=== PATIENT | female | born 1965 | race African-American/Black ===

== ENCOUNTER 2017-11-17 07:57 | Inpatient (IN) | payer OTHER ==
[2017-11-17 08:33] VITALS: BMI 31.9
--- NOTE | 2017-11-17 09:36 | HP ---
CIWA Score - CIWA Score Nausea/Vomitin Muscle Tremors: 3 Anxiety: 4-Mod. Anxious/Guarded Agitation: 0-Normal Activity Paroxysmal Sweats: No Perspiration Orientation: 0-Oriented Tacttile Disturbances: 1-Very Mild Itch/Numbness Auditory Disturbances: 1-Very Mild Visual Disturbances: 2-Mild Sensitivity Headache: 2-Mild CIWA-Ar Total Score: 15 Admission ROS BHS - HPI Chief Complaint: I want to stop, I had 10 years clean so I know I can do it Allergies/Adverse Reactions: Allergies Allergy/AdvReac Type Severity Reaction Status Date / Time penicillin G Allergy Severe Rash Verified 11/17/17 08:46 History of Present Illness: 51 yo woman here for detox from alcohol, also using crack. Previously here in September 2017 but relapsed shortly after discharge and wants to go into rehab after detox. No seizures. Urine tox + benzo but she states she does not use it and must be mixed with crack. Exam Limitations: Clinical Condition - Ebola screening Have you traveled outside of the country in the last 21 days: No (N) Have you had contact with anyone from an Ebola affected area: No Have you been sick,other than usual withdrawal symptoms: No Do you have a fever: No - Review of Systems Constitutional: Loss of Appetite, Malaise, Changes in sleep, Weakness EENT: reports: Blurred Vision Respiratory: reports: No Symptoms reported Cardiac: reports: No Symptoms Reported GI: reports: Nausea, Indigestion, Abdominal cramping : reports: Frequency Musculoskeletal: reports: Back Pain, Joint Pain Integumentary: reports: Dryness Neuro: reports: Headache Endocrine: reports: No Symptoms Reported Hematology: reports: No Symptoms Reported Psychiatric: reports: Judgement Intact, Mood/Affect Appropiate, Orientated x3, Anxious Other Systems: Reviewed and Negative Patient History - Patient Medical History Hx Anemia: No Hx Asthma: Yes Hx Chronic Obstructive Pulmonary Disease (COPD): No Hx Cancer: No Hx Cardiac Disorders: No Hx Congestive Heart Failure: No Hx Hypertension: Yes (no meds yet) Hx Hypercholesterolemia: No Hx Pacemaker: No HX Cerebrovascular Accident: No Hx Seizures: No Hx Dementia: No Hx Diabetes: No Hx Gastrointestinal Disorders: No Hx Liver Disease: No Hx Genitourinary Disorders: No Hx Sexually Transmitted Disorders: No Hx Renal Disease (ESRD): No Hx Thyroid Disease: No Hx Human Immunodeficiency Virus (HIV): No Hx Hepatitis C: No Hx Depression: Yes (hospitalized 2017 in [place]) Hx Suicide Attempt: Yes (Pt tried to overdose in 1997.) Hx Bipolar Disorder: No Hx Schizophrenia: No Other Medical History: right knee osteoarthritis - uses cane - Patient Surgical History Past Surgical History: No Hx Neurologic Surgery: No Hx Cataract Extraction: No Hx Cardiac Surgery: No Hx Lung Surgery: No Hx Breast Surgery: No Hx Breast Biopsy: No Hx Abdominal Surgery: No Hx Appendectomy: No Hx Cholecystectomy: No Hx Genitourinary Surgery: No Hx Section: No Hx Orthopedic Surgery: No Hx Hysterectomy: No Anesthesia Reaction: No - PPD History Previous Implant?: Yes Documented Results: Negative w/proof Implanted On Prior R Admission?: Yes Date: 10/14/17 Results: 0mm PPD to be Administered?: No - Reproductive History Last Menstrual Period: 09/29/17 - Smoking Cessation Smoking history: Current every day smoker Have you smoked in the past 12 months: Yes Aproximately how many cigarettes per day: 10 Hx Chewing Tobacco Use: No Initiated information on smoking cessation: Yes 'Breaking Loose' booklet given: 11/17/17 (give on floor) - Substances Abused Alcohol Route: Oral Frequency: Daily Amount used: 3/ 6PACK BEER - 1 PINT OF VODKA Age of first use: 16 Date of Last Use: 11/16/17 Crack Route: Smoking Frequency: 3-6 times per week Amount used: $150 Age of first use: 19 Date of Last Use: 11/16/17 Family Disease History - Family Disease History Family Disease History: Heart Disease: Father (, [place], etoh), Mother ( , [place],), Brother (two living, one drug overdose), [place]: Sister ( two living, one breast cancer, drug abuse, HIV), Other: Father, Mother , Brother, Daughter (one - healthy - ) Admission Physical Exam S - Vital Signs Vital Signs: Vital Signs - 24 hr 11/17/17 08:28 Temperature 98 F Pulse Rate 98 H Respiratory 19 Rate Blood Pressure 160/96 - Physical General Appearance: Yes: Nourished, Appropriately Dressed, Moderate Distress, Tremorous, Anxious HEENTM: Yes: EOMI, Hearing grossly Normal, Normal ENT Inspection, Normocephalic , Normal Voice Respiratory: Yes: Normal Breath Sounds, No Respiratory Distress Neck: Yes: No masses,lesions,Nodules Breast: Yes: Breast Exam Deferred Cardiology: Yes: Regular Rhythm, Regular Rate Abdominal: Yes: Flat, Soft, Protuberent Genitourinary: Yes: Frequency Back: Yes: Normal Inspection Musculoskeletal: Yes: Gait Steady, Joint Stiffness, Other (right knee pain) Extremities: Yes: Normal Inspection, Pedal Edema Neurological: Yes: Fully Oriented, Alert, Normal Mood/Affect, Normal Response Integumentary: Yes: Normal Color, Warm Lymphatic: Yes: Within Normal Limits - Diagnostic (1) Alcohol dependence with uncomplicated withdrawal Current Visit: Yes Status: Acute (2) Cocaine dependence Current Visit: Yes Status: Chronic Qualifiers: Substance use status: uncomplicated Qualified Code(s): F14.20 - Cocaine dependence, uncomplicated (3) Nicotine dependence Current Visit: Yes Status: Acute Qualifiers: Nicotine product type: cigarettes Substance use status: uncomplicated Qualified Code(s): F17.210 - Nicotine dependence, cigarettes, uncomplicated (4) Osteoarthritis of right knee Current Visit: Yes Status: Chronic Qualifiers: Osteoarthritis type: primary Qualified Code(s): M17.11 - Unilateral primary osteoarthritis, right knee (5) Asthma Current Visit: Yes Status: Chronic Qualifiers: Asthma severity: moderate Asthma complication type: uncomplicated Cleared for Admission S - Detox or Rehab [facility] Level of Care: Medically Managed Detox Regimen/Protocol: Librium [facility] Breath Alcohol Content Breath Alcohol Content: 0 Urine Pregancy Test - Result Urine Test Results: Negative- NO Line Present Urine Drug Screen - Results Drug Screen Negative: No Urine Drug Screen Results: JULIO-Cocaine, BZO-Benzodiazepines, TCA-Tricyclic Antidepress
[2017-11-17] MEDS ORDERED: IBUPROFEN 400 MG TABLET (FP) PO PRN (09:42)
[2017-11-17] MEDS ORDERED: guaiFENesin/D-METHORPHAN HB 10 ML UNIT-DOSE CUPS PO PRN (09:42)
[2017-11-17] MEDS ORDERED: LOPERAMIDE HCL 2 MG CAPSULE PO PRN (09:42)
[2017-11-17] MEDS ORDERED: chlordiazePOXIDE HCL 25 MG CAPSULE PO ONE (09:42)
[2017-11-17] MEDS ORDERED: chlordiazePOXIDE HCL 25 MG CAPSULE PO PRN (09:42)
[2017-11-17] MEDS ORDERED: MAG HYDROX/AL HYDROX/SIMETH 30 ML UNIT-DOSE CUP PO PRN (09:42)
[2017-11-17] MEDS ORDERED: MAGNESIUM HYDROX 2400MG/30ML ORAL SUSPENSION 30 ML CUP PO PRN (09:42)
[2017-11-17] MEDS ORDERED: ACETAMINOPHEN 325 MG TABLET (FP) PO PRN (09:42)
[2017-11-17] MEDS ORDERED: P-EPHED 60MG/TRIPROLIDI 2.5MG TABLET PO PRN (09:42)
[2017-11-17] MEDS ORDERED: NICOTINE POLACRILEX 4 MG GUM BUC PRN (09:42)
[2017-11-17] MEDS ORDERED: MAGNESIUM CITRATE 300 ML BOTTLE PO PRN (09:42)
[2017-11-17] MEDS ORDERED: hydrOXYzine PAMOATE 25 MG CAPSULE (FP) PO PRN (09:42)
[2017-11-17] MEDS ORDERED: MENTHOL/PHENOL 1 EACH UD MM PRN (09:42)
[2017-11-17] MEDS ORDERED: ALBUTEROL SO4 8 GM HFA INHALER IH PRN (09:44)
[2017-11-17] MEDS: chlordiazePOXIDE HCL 25 MG CAPSULE PO SCH ×3 (11:41→22:38)
[2017-11-17] MEDS: PRENATAL VITAMINS W/ FOLIC ACID TABLET (FP) PO SCH (11:41)
[2017-11-17 15:03] LABS: URINE APPEARANCE CLOUDY; URINE BILIRUBIN NEGATIVE (<2.0 mg/dL); URINE COLOR LTYELLOW; URINE GLUCOSE (UA) NEGATIVE (NEGATIVE); URINE KETONE NEGATIVE (NEGATIVE); URINE NITRITE NEGATIVE (NEGATIVE); URINE PROTEIN NEGATIVE (NEGATIVE); URINE UROBILINOGEN NEGATIVE mg/dL (0.2-1.0)
[2017-11-17 15:16] LABS: URINE LEUK ESTERASE 1+ (NEGATIVE)
[2017-11-17 15:19] LABS: EPI CELLS MANY /HPF (FEW)
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
--- NOTE | 2017-11-17 19:46 | EKG ---
Test Reason : Blood Pressure : / mmHG Vent. Rate : 081 BPM Atrial Rate : 081 BPM P-R Int : 172 ms QRS Dur : 076 ms QT Int : 384 ms P-R-T Axes : 078 070 063 degrees QTc Int : 446 ms NORMAL SINUS RHYTHM POSSIBLE LEFT ATRIAL ENLARGEMENT BORDERLINE ECG WHEN COMPARED WITH ECG OF 12-OCT-2017 12:56, NO SIGNIFICANT CHANGE WAS FOUND Confirmed by FIFI GUY, GILSON ([id number]) on 11/17/2017 7:45:55 PM Referred By: Confirmed By:GILSON CALIX MD
[2017-11-17] MEDS ORDERED: THIAMINE HCL 100 MG TABLET (FP) PO SCH (22:00)
[2017-11-17] MEDS ORDERED: MELATONIN 5 MG TABLETS PO PRN (22:00)
[2017-11-17] MEDS: CYCLOBENZAPRINE HCL 10 MG TABLET (FP) PO PRN (22:38)
[2017-11-18] MEDS: chlordiazePOXIDE HCL 25 MG CAPSULE PO SCH (05:47)
[2017-11-18] MEDS ORDERED: SERTRALINE HCL 50 MG TABLET (FP) PO SCH (10:00)
[2017-11-18 10:19] LABS: HEMOGLOBIN 13.1 GM/dL (10.7-15.3); MCH 28.3 pg (25.7-33.7); MCHC 32.8 g/dl (32.0-36.0); MEAN CELL VOLUME 86.1 fl (80-96); PLATELET COUNT 182 K/MM3 (134-434); RBC 4.65 M/mm3 (3.60-5.2); RDW 15.1 % (11.6-15.6); WHITE BLOOD COUNT 4.9 K/mm3 (4.0-10.0)
[2017-11-18 10:30] VITALS: BP 139/90; PULSE 90; TEMP 97.3
[2017-11-18] MEDS: CYCLOBENZAPRINE HCL 10 MG TABLET (FP) PO PRN (10:30)
[2017-11-18] MEDS: PRENATAL VITAMINS W/ FOLIC ACID TABLET (FP) PO SCH (10:30)
[2017-11-18 10:52] LABS: ALBUMIN 3.1 g/dl (3.4-5.0); ANION GAP 3 (8-16); BLOOD UREA NITROGEN 10 mg/dL (7-18); CALCIUM 8.9 mg/dL (8.5-10.1); CHLORIDE 108 mmol/L (98-107); CO2 30 mmol/L (21-32); GLUCOSE,RANDOM 88 mg/dL (74-106); POTASSIUM 3.9 mmol/L (3.5-5.1); SODIUM 141 mmol/L (136-145)
[2017-11-18 10:54] LABS: ALK PHOS 106 U/L (45-117); BILIRUBIN,TOTAL 0.3 mg/dL (0.2-1.0); CREATININE 0.6 mg/dL (0.55-1.02); SGOT/AST 16 U/L (15-37); SGPT/ALT 19 U/L (12-78); TOT PROT 6.2 g/dl (6.4-8.2)
[2017-11-18] MEDS ORDERED: chlordiazePOXIDE HCL 25 MG CAPSULE PO SCH (11:00)
--- NOTE | 2017-11-18 14:29 | DS ---
[facility] Detox Discharge Summary Admission Date: 11/17/17 Discharge Date: 11/18/17 - History Present History: Alcohol Dependence Additional Comments: 51 years old female admitted on 11/17/17 for alcohol withdrawal sx stated well rested feeling better today no shaking no sweating patient preferred aftercare recovery process at [facility] and an appointment had been set up few days ago alert oriented x 3 no acute distress - Physical Exam Results Vital Signs: Vital Signs Temperature 97.3 F L 11/18/17 10:30 Pulse Rate 90 11/18/17 10:30 Respiratory Rate 16 11/18/17 10:30 Blood Pressure 139/90 11/18/17 10:30 O2 Sat by Pulse Oximetry (%) Laboratory Last Values WBC 4.9 K/mm3 (4.0-10.0) 11/18/17 07:50 RBC 4.65 M/mm3 (3.60-5.2) 11/18/17 07:50 Hgb 13.1 GM/dL (10.7-15.3) 11/18/17 07:50 Hct 40.0 % (32.4-45.2) 11/18/17 07:50 MCV 86.1 fl (80-96) 11/18/17 07:50 MCH 28.3 pg (25.7-33.7) 11/18/17 07:50 MCHC 32.8 g/dl (32.0-36.0) 11/18/17 07:50 RDW 15.1 % (11.6-15.6) 11/18/17 07:50 Plt Count 182 K/MM3 (134-434) 11/18/17 07:50 MPV 8.0 fl (7.5-11.1) 11/18/17 07:50 Sodium 141 mmol/L (136-145) 11/18/17 07:50 Potassium 3.9 mmol/L (3.5-5.1) 11/18/17 07:50 Chloride 108 mmol/L (98-107) H 11/18/17 07:50 Carbon Dioxide 30 mmol/L (21-32) 11/18/17 07:50 Anion Gap 3 (8-16) L 11/18/17 07:50 BUN 10 mg/dL (7-18) 11/18/17 07:50 Creatinine 0.6 mg/dL (0.55-1.02) 11/18/17 07:50 Creat Clearance w eGFR > 60 (>60) 11/18/17 07:50 Random Glucose 88 mg/dL (74-106) 11/18/17 07:50 Calcium 8.9 mg/dL (8.5-10.1) 11/18/17 07:50 Total Bilirubin 0.3 mg/dL (0.2-1.0) 11/18/17 07:50 AST 16 U/L (15-37) 11/18/17 07:50 ALT 19 U/L (12-78) 11/18/17 07:50 Alkaline Phosphatase 106 U/L (45-117) 11/18/17 07:50 Total Protein 6.2 g/dl (6.4-8.2) L 11/18/17 07:50 Albumin 3.1 g/dl (3.4-5.0) L 11/18/17 07:50 Urine Color Ltyellow 11/17/17 11:10 Urine Appearance Cloudy 11/17/17 11:10 Urine pH 6.0 (5.0-8.0) 11/17/17 11:10 Ur Specific [place] 1.018 (1.001-1.035) 11/17/17 11:10 Urine Protein Negative (NEGATIVE) 11/17/17 11:10 Urine Glucose (UA) Negative (NEGATIVE) 11/17/17 11:10 Urine Ketones Negative (NEGATIVE) 11/17/17 11:10 Urine Blood Negative (NEGATIVE) 11/17/17 11:10 Urine Nitrite Negative (NEGATIVE) 11/17/17 11:10 Urine Bilirubin Negative (<2.0 mg/dL) 11/17/17 11:10 Urine Urobilinogen Negative mg/dL (0.2-1.0) 11/17/17 11:10 Ur Leukocyte Esterase 1+ (NEGATIVE) H 11/17/17 11:10 Urine WBC (Auto) 2 /hpf (3-5) 11/17/17 11:10 Urine RBC (Auto) None /hpf (0-3) 11/17/17 11:10 Ur Epithelial Cells Many /HPF (FEW) 11/17/17 11:10 RPR Titer Nonreactive (NONREACTIVE) 11/18/17 07:50 lab noted Pertinent Admission Physical Exam Findings: alcohol withdrawal sx Vital Signs Temperature 97.3 F L 11/18/17 10:30 Pulse Rate 90 11/18/17 10:30 Respiratory Rate 16 11/18/17 10:30 Blood Pressure 139/90 11/18/17 10:30 O2 Sat by Pulse Oximetry (%) Laboratory Last Values WBC 4.9 K/mm3 (4.0-10.0) 11/18/17 07:50 RBC 4.65 M/mm3 (3.60-5.2) 11/18/17 07:50 Hgb 13.1 GM/dL (10.7-15.3) 11/18/17 07:50 Hct 40.0 % (32.4-45.2) 11/18/17 07:50 MCV 86.1 fl (80-96) 11/18/17 07:50 MCH 28.3 pg (25.7-33.7) 11/18/17 07:50 MCHC 32.8 g/dl (32.0-36.0) 11/18/17 07:50 RDW 15.1 % (11.6-15.6) 11/18/17 07:50 Plt Count 182 K/MM3 (134-434) 11/18/17 07:50 MPV 8.0 fl (7.5-11.1) 11/18/17 07:50 Sodium 141 mmol/L (136-145) 11/18/17 07:50 Potassium 3.9 mmol/L (3.5-5.1) 11/18/17 07:50 Chloride 108 mmol/L (98-107) H 11/18/17 07:50 Carbon Dioxide 30 mmol/L (21-32) 11/18/17 07:50 Anion Gap 3 (8-16) L 11/18/17 07:50 BUN 10 mg/dL (7-18) 11/18/17 07:50 Creatinine 0.6 mg/dL (0.55-1.02) 11/18/17 07:50 Creat Clearance w eGFR > 60 (>60) 11/18/17 07:50 Random Glucose 88 mg/dL (74-106) 11/18/17 07:50 Calcium 8.9 mg/dL (8.5-10.1) 11/18/17 07:50 Total Bilirubin 0.3 mg/dL (0.2-1.0) 11/18/17 07:50 AST 16 U/L (15-37) 11/18/17 07:50 ALT 19 U/L (12-78) 11/18/17 07:50 Alkaline Phosphatase 106 U/L (45-117) 11/18/17 07:50 Total Protein 6.2 g/dl (6.4-8.2) L 11/18/17 07:50 Albumin 3.1 g/dl (3.4-5.0) L 11/18/17 07:50 Urine Color Ltyellow 11/17/17 11:10 Urine Appearance Cloudy 11/17/17 11:10 Urine pH 6.0 (5.0-8.0) 11/17/17 11:10 Ur Specific [place] 1.018 (1.001-1.035) 11/17/17 11:10 Urine Protein Negative (NEGATIVE) 11/17/17 11:10 Urine Glucose (UA) Negative (NEGATIVE) 11/17/17 11:10 Urine Ketones Negative (NEGATIVE) 11/17/17 11:10 Urine Blood Negative (NEGATIVE) 11/17/17 11:10 Urine Nitrite Negative (NEGATIVE) 11/17/17 11:10 Urine Bilirubin Negative (<2.0 mg/dL) 11/17/17 11:10 Urine Urobilinogen Negative mg/dL (0.2-1.0) 11/17/17 11:10 Ur Leukocyte Esterase 1+ (NEGATIVE) H 11/17/17 11:10 Urine WBC (Auto) 2 /hpf (3-5) 11/17/17 11:10 Urine RBC (Auto) None /hpf (0-3) 11/17/17 11:10 Ur Epithelial Cells Many /HPF (FEW) 11/17/17 11:10 RPR Titer Nonreactive (NONREACTIVE) 11/18/17 07:50 lab noted - Treatment Hospital Course: Detox Protocol Followed, Detoxed Safely, Responded well, Discharged Condition Good, Rehab Referral Accepted Patient has Accepted a Rehab Referral to: [facility] - Medication Discharge Medications: Ambulatory Orders Sertraline HCl [Zoloft -] 150 mg PO HS 09/06/15 Terbinafine HCl 250 mg PO DAILY 10/12/17 Albuterol Sulfate Inhaler - [Ventolin HFA Inhaler -] 2 inh PO Q4H PRN #1 inhaler 10/15/17 Cyclobenzaprine HCl [Flexeril 10 mg] 10 mg PO BID PRN 11/17/17 - Diagnosis (1) Alcohol dependence with uncomplicated withdrawal Status: Acute (2) Nicotine dependence Status: Acute Qualifiers: Nicotine product type: cigarettes Substance use status: in withdrawal Qualified Code(s): F17.213 - Nicotine dependence, cigarettes, with withdrawal (3) Asthma Status: Chronic Qualifiers: Asthma severity: mild Asthma persistence: intermittent Asthma complication type: uncomplicated Qualified Code(s): J45.20 - Mild intermittent asthma, uncomplicated (4) Schizoaffective disorder Status: Suspected Qualifiers: Schizoaffective disorder type: unspecified - AMA Did Patient Leave Against Medical Advice: No
[2017-11-19] MEDS ORDERED: chlordiazePOXIDE 5 MG CAPSULE PO SCH (11:00)
[2017-11-20] MEDS ORDERED: chlordiazePOXIDE HCL 10 MG CAPSULE PO SCH (11:00)
== END 2017-11-18 13:37 | disposition left against medical advice (07) | DRG 770 ==
LOC: YASAS 07:57 → Y6N 09:52
PROVIDERS: ADMIT Surgery; ATTEND Surgery
PROC: HZ2ZZZZ Detoxification Services for Substance Abuse Treatment (ICD-10-PCS; principal; 2017-11-17)
DX: F10.230 Alcohol dependence with withdrawal, uncomplicated (principal); F14.20 Cocaine dependence, uncomplicated; F17.213 Nicotine dependence, cigarettes, with withdrawal; F19.24 Other psychoactive substance dependence with psychoactive substance-induced mood disorder; F25.9 Schizoaffective disorder, unspecified; J45.20 Mild intermittent asthma, uncomplicated; G47.00 Insomnia, unspecified; M17.11 Unilateral primary osteoarthritis, right knee; R26.89 Other abnormalities of gait and mobility; Z99.89 Dependence on other enabling machines and devices; Z91.14 Patient's other noncompliance with medication regimen; Z91.5 Personal history of self-harm; Z88.0 Allergy status to penicillin
CPT/HCPCS: 36415; 80053; 81003; 81015; 85027; 86593; 93005; 93010

== ENCOUNTER 2018-09-05 13:12 | Inpatient (IN) | payer OTHER ==
--- NOTE | 2018-09-05 18:58 | HP ---
CIWA Score Nausea/Vomitin-No Nausea/No Vomiting Muscle Tremors: 2 Anxiety: 3 Agitation: 0-Normal Activity Paroxysmal Sweats: 2 Orientation: 0-Oriented Tacttile Disturbances: 2-Mild Itch/Numbness/Burn Auditory Disturbances: 2-Mild Harshness/Frighten Visual Disturbances: 0-None Headache: 0-None Present CIWA-Ar Total Score: 11 - Admission Criteria [facility] Guidelines: Admission for Medically Managed Detox: Requires at least one of the followin. CIWA greater than 12 2. Seizures within the past 24 hours 3. Delirium tremens within the past 24 hours 4. Hallucinations within the past 24 hours 5. Acute intervention needed for co occurring medical disorder 6. Acute intervention needed for co occurring psychiatric disorder 7. Severe withdrawal that cannot be handled at a lower level of care (continued vomiting, continued diarrhea, abnormal vital signs) requiring intravenous medication and/or fluids 8. Patient presents the following: Acute intervention needed for co-occurring med or psych disorder Admission Criteria Met: Admission criteria met Admission ROS S - [facility] Chief Complaint: alcohol withdrawal symptoms Allergies/Adverse Reactions: Allergies Allergy/AdvReac Type Severity Reaction Status Date / Time penicillin G Allergy Severe Rash Verified 11/17/17 08:46 History of Present Illness: 52 yo female with hx of alcohol and crack cocaine is here for detox. Previously here in October 2017, left AMA but relapsed shortly after discharge and wants to go into rehab after detox. Longest period of sobriety 10 years, relapse three years ago. No seizures. Urine tox + benzo, dirk but she states she does not use it and must be mixed with crack. PMHX: HTN (no meds), OA(b/l knees), Chronic back pain, asthma. Psych: PTSD, schizoaffective, depression, on meds. Suicide attempt x3 with last episode 1998. Exam Limitations: No Limitations - Ebola screening Have you traveled outside of the country in the last 21 days: No Have you had contact with anyone from an Ebola affected area: No Do you have a fever: No - Review of Systems Constitutional: Chills, Changes in sleep, Other (weight gain) EENT: reports: No Symptoms Reported Respiratory: reports: Cough (x 2 weeks), SOB with Exertion (upon awakening) Cardiac: reports: No Symptoms Reported GI: reports: Poor Fluid Intake, Indigestion : reports: No Symptoms Reported, Lesions Musculoskeletal: reports: Joint Pain Integumentary: reports: Pruritus, Other (pruritic rash both arms, seen by PCP) Neuro: reports: No Symptoms reported Endocrine: reports: Intolerance to Cold Hematology: reports: No Symptoms Reported Psychiatric: reports: Orientated x3, Anxious Other Systems: Reviewed and Negative Patient History - Patient Medical History Hx Anemia: No Hx Asthma: Yes Hx Chronic Obstructive Pulmonary Disease (COPD): No Hx Cancer: No Hx Cardiac Disorders: No Hx Congestive Heart Failure: No Hx Hypertension: Yes (no meds yet) Hx Hypercholesterolemia: No Hx Pacemaker: No HX Cerebrovascular Accident: No Hx Seizures: No Hx Dementia: No Hx Diabetes: No Hx Gastrointestinal Disorders: No Hx Liver Disease: No Hx Genitourinary Disorders: No Hx Sexually Transmitted Disorders: No Hx Renal Disease (ESRD): No Hx Thyroid Disease: No Hx Human Immunodeficiency Virus (HIV): No Hx Hepatitis C: No Hx Depression: Yes (hospitalized 2016 in [place]) Hx Suicide Attempt: Yes (Pt tried to overdose in 1997.) Hx Bipolar Disorder: No Hx Schizophrenia: No - Patient Surgical History Past Surgical History: No Hx Neurologic Surgery: No Hx Cataract Extraction: No Hx Cardiac Surgery: No Hx Lung Surgery: No Hx Breast Surgery: No Hx Breast Biopsy: No Hx Abdominal Surgery: No Hx Appendectomy: No Hx Cholecystectomy: No Hx Genitourinary Surgery: No Hx Section: No Hx Orthopedic Surgery: No Hx Hysterectomy: No Anesthesia Reaction: No - PPD History Previous Implant?: No Documented Results: Negative w/proof Date: 10/14/17 Results: 0mm PPD to be Administered?: No - Reproductive History Last Menstrual Period: 09/29/17 - Smoking Cessation Smoking history: Current every day smoker Have you smoked in the past 12 months: Yes Aproximately how many cigarettes per day: 10 Hx Chewing Tobacco Use: No Initiated information on smoking cessation: Yes 'Breaking Loose' booklet given: 09/05/18 - Substance & Tx. History Hx Alcohol Use: Yes Hx Substance Use: Yes Substance Use Type: Alcohol, Cocaine Hx Substance Use Treatment: Yes ([facility] detox October 2017 AMA ) - Substances abused Alcohol Substance route: Oral Frequency: Daily Amount used: 2 160Z 6PACKS BEER/DAILY Age of first use: 16 Date of last use: 09/05/18 Crack Substance route: Smoking Frequency: 3-6 times per week Amount used: $100 Age of first use: 19 Date of last use: 09/04/18 Family Disease History - Family Disease History Family Disease History: Heart Disease: Father (, [place], etoh), Mother ( , [place],), Brother (two living, one drug overdose), [place]: Sister ( two living, one breast cancer, drug abuse, HIV), Other: Father, Mother , Brother, Daughter (one - healthy - ) Admission Physical Exam [facility] - Vital Signs Vital Signs: Vital Signs - 24 hr 09/05/18 17:33 Temperature 98.3 F Pulse Rate 85 Respiratory 18 Rate Blood Pressure 150/90 - Physical General Appearance: Yes: Appropriately Dressed, Anxious HEENTM: Yes: EOMI, Hearing grossly Normal, Normal ENT Inspection, Normocephalic , Normal Voice, CAROLYNN, Pharynx Normal, Tm's normal Respiratory: Yes: Chest Non-Tender, Lungs Clear, Normal Breath Sounds, No Respiratory Distress, No Accessory Muscle Use Neck: Yes: Within Normal Limits Breast: Yes: Breast Exam Deferred Cardiology: Yes: Regular Rhythm, Regular Rate Abdominal: Yes: Normal Bowel Sounds, Non Tender, Flat, Soft Genitourinary: Yes: Within Normal Limits Back: Yes: Normal Inspection Musculoskeletal: Yes: full range of Motion, Gait Steady, Pelvis Stable, Back pain, Other (+ bilateral knee pain, full ROM, + crepitus, erythema or edema) Extremities: Yes: Normal Capillary Refill, Normal Inspection, Normal Range of Motion, Non-Tender Neurological: Yes: 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 II-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 NML intact, Fully Oriented, Alert, Motor Strength 5/5, Normal Mood/Affect Integumentary: Yes: Normal Color, Warm, Clammy, Other (+ rash right upper arm) Lymphatic: Yes: Within Normal Limits - Diagnostic (1) Osteoarthritis Current Visit: Yes Status: Chronic Qualifiers: Osteoarthritis location: knee Laterality: bilateral (2) Alcohol dependence with uncomplicated withdrawal Current Visit: Yes Status: Acute (3) Cocaine dependence Current Visit: Yes Status: Acute Qualifiers: Substance use status: uncomplicated Qualified Code(s): F14.20 - Cocaine dependence, uncomplicated (4) Insomnia Current Visit: Yes Status: Acute (5) Nicotine dependence Current Visit: Yes Status: Acute Qualifiers: Nicotine product type: cigarettes Substance use status: in withdrawal Qualified Code(s): F17.213 - Nicotine dependence, cigarettes, with withdrawal (6) Asthma Current Visit: Yes Status: Chronic Qualifiers: Asthma severity: moderate Asthma persistence: persistent Asthma complication type: uncomplicated Qualified Code(s): J45.40 - Moderate persistent asthma, uncomplicated Cleared for Admission [facility] - Detox or Rehab [facility] Level of Care: Medically Managed Detox Regimen/Protocol: Librium Screened but not Admitted - Documentation of Visit Screened but not Admitted: No Breathalyzer - Breathalyzer Breathalyzer: 0 Urine Drug Screen - Test Device Lot number: [id number] Expiration date: 05/30/20 - Control Is test valid?: Yes - Results Drug screen NEGATIVE: No Urine drug screen results: DIRK-Cocaine, BZO-Benzodiazepines Inpatient Rehab Admission - Rehab Decision to Admit Inpatient rehab admission?: No
[2018-09-05] MEDS ORDERED: ALBUTEROL SO4 8 GM HFA INHALER IH PRN (19:01)
[2018-09-05] MEDS ORDERED: MENTHOL/PHENOL 1 EACH UD MM PRN (19:02)
[2018-09-05] MEDS ORDERED: ACETAMINOPHEN 325 MG TABLET (FP) PO PRN ×2 (19:02)
[2018-09-05] MEDS ORDERED: MAGNESIUM CITRATE 300 ML BOTTLE PO PRN (19:02)
[2018-09-05] MEDS ORDERED: BISMUTH SUBSALICYLATE 524 MG/30 ML UD PO PRN (19:02)
[2018-09-05] MEDS ORDERED: hydrOXYzine PAMOATE 25 MG CAPSULE (FP) PO PRN (19:02)
[2018-09-05] MEDS ORDERED: IBUPROFEN 400 MG TABLET (FP) PO PRN (19:02)
[2018-09-05] MEDS ORDERED: chlordiazePOXIDE HCL 25 MG CAPSULE PO PRN (19:02)
[2018-09-05] MEDS ORDERED: METHOCARBAMOL 500 MG TABLET PO PRN (19:02)
[2018-09-05] MEDS ORDERED: MAGNESIUM HYDROX 2400MG/30ML ORAL SUSPENSION 30 ML CUP PO PRN (19:02)
[2018-09-05] MEDS ORDERED: MAG HYDROX/AL HYDROX/SIMETH 30 ML UNIT-DOSE CUP PO PRN (19:02)
[2018-09-05] MEDS ORDERED: MELATONIN 5 MG TABLETS PO PRN (19:02)
[2018-09-05] MEDS ORDERED: ALBUTEROL SO4 2.5/IPRATROPIUM 0.5 INH SOL 3 ML VIAL.NEB. NEB PRN (19:05)
[2018-09-05] MEDS: MONTELUKAST NA 10 MG TABLET PO SCH (21:53)
[2018-09-05] MEDS: THIAMINE HCL 100 MG TABLET (FP) PO SCH (21:53)
[2018-09-05] MEDS: chlordiazePOXIDE HCL 25 MG CAPSULE PO SCH (22:06)
[2018-09-06] MEDS: chlordiazePOXIDE HCL 25 MG CAPSULE PO SCH ×4 (06:10→22:29)
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
--- NOTE | 2018-09-06 09:40 | PN ---
[facility] CIWA - CIWA Score Nausea/Vomitin Muscle Tremors: 2 Anxiety: 3 Agitation: 2 Paroxysmal Sweats: 1-Minimal Palms Moist Orientation: 0-Oriented Tacttile Disturbances: 1-Very Mild Itch/Numbness Auditory Disturbances: 1-Very Mild Visual Disturbances: 0-None Headache: 2-Mild CIWA-Ar Total Score: 14 [facility] Progress Note (SOAP) Subjective: alert,irritable,anxious,interrupted sleep,tremor Objective: 09/06/18 09:39 Vital Signs Temperature 97.7 F 09/06/18 06:06 Pulse Rate 83 09/06/18 06:06 Respiratory Rate 20 09/06/18 06:06 Blood Pressure 146/93 09/06/18 06:06 O2 Sat by Pulse Oximetry (%) 09/06/18 09:39 labs pending Assessment: 09/06/18 09:39 withdrawal symptom Plan: continue detox
[2018-09-06] MEDS: PRENATAL VITAMINS W/ FOLIC ACID TABLET (FP) PO SCH (10:09)
[2018-09-06 10:10] LABS: HEMATOCRIT 43.2 % (32.4-45.2); HEMOGLOBIN 13.7 GM/dL (10.7-15.3); MCH 28.2 pg (25.7-33.7); MCHC 31.7 g/dl (32.0-36.0); PLATELET COUNT 189 K/MM3 (134-434); RBC 4.86 M/mm3 (3.60-5.2); RDW 14.9 % (11.6-15.6); WHITE BLOOD COUNT 5.6 K/mm3 (4.0-10.0)
[2018-09-06 10:18] LABS: ALBUMIN 3.3 g/dl (3.4-5.0); BILIRUBIN,TOTAL 1.5 mg/dL (0.2-1); CREATININE 0.6 mg/dL (0.55-1.3); POTASSIUM 3.8 mmol/L (3.5-5.1); TOT PROT 6.3 g/dl (6.4-8.2)
[2018-09-06] MEDS ORDERED: PATIENT'S OWN MEDICATION (NON-FORMULARY) (Bupropion Hcl [Bupropion Hcl Sr] 150 MG) PO SCH (22:00)
[2018-09-06] MEDS: BENZTROPINE MESYLATE 1 MG TABLET (FP) PO SCH (22:23)
[2018-09-06] MEDS: MONTELUKAST NA 10 MG TABLET PO SCH (22:23)
[2018-09-06] MEDS: risperiDONE 1 MG TABLET (FP) PO SCH (22:27)
[2018-09-06] MEDS: THIAMINE HCL 100 MG TABLET (FP) PO SCH (23:17)
[2018-09-07] MEDS: chlordiazePOXIDE HCL 25 MG CAPSULE PO SCH ×3 (06:02→17:55)
[2018-09-07] MEDS: PRENATAL VITAMINS W/ FOLIC ACID TABLET (FP) PO SCH (10:04)
[2018-09-07] MEDS: PATIENT'S OWN MEDICATION (NON-FORMULARY) (Bupropion Hcl [Bupropion Hcl Sr] 150 MG) PO SCH (10:05)
--- NOTE | 2018-09-07 10:24 | PN ---
S CIWA - CIWA Score Nausea/Vomitin-No Nausea/No Vomiting Muscle Tremors: 3 Anxiety: 2 Agitation: 0-Normal Activity Paroxysmal Sweats: 4-Forehead w/Sweat Beads Orientation: 0-Oriented Tacttile Disturbances: 0-None Auditory Disturbances: 0-None Visual Disturbances: 0-None Headache: 1-Very Mild CIWA-Ar Total Score: 10 [facility] Progress Note (SOAP) Subjective: c/o sweats, anxiety, interrupted sleep, and mild headache. Objective: 09/07/18 10:23 Vital Signs 09/07/18 09/07/18 07:54 09:49 Temperature 98.4 F 96.1 F L Pulse Rate 76 83 Respiratory 18 18 Rate Blood Pressure 124/72 138/83 Assessment: 09/07/18 10:23 AOX3, no distress withdrawal symptoms Plan: continue detox increase fluids
[2018-09-07] MEDS: BENZTROPINE MESYLATE 1 MG TABLET (FP) PO SCH (22:27)
[2018-09-07] MEDS: risperiDONE 1 MG TABLET (FP) PO SCH (22:27)
[2018-09-07] MEDS: MONTELUKAST NA 10 MG TABLET PO SCH (22:27)
[2018-09-07] MEDS: THIAMINE HCL 100 MG TABLET (FP) PO SCH (22:27)
[2018-09-07] MEDS: chlordiazePOXIDE HCL 10 MG CAPSULE PO SCH (22:28)
[2018-09-07] MEDS ORDERED: chlordiazePOXIDE HCL 10 MG CAPSULE PO PRN (23:00)
[2018-09-08] MEDS: chlordiazePOXIDE HCL 10 MG CAPSULE PO SCH ×3 (05:47→17:53)
[2018-09-08] MEDS: PRENATAL VITAMINS W/ FOLIC ACID TABLET (FP) PO SCH (10:15)
[2018-09-08] MEDS: PATIENT'S OWN MEDICATION (NON-FORMULARY) (Bupropion Hcl [Bupropion Hcl Sr] 150 MG) PO SCH (10:15)
[2018-09-08] MEDS ORDERED: NICOTINE POLACRILEX 2 MG GUM BUC PRN (11:01)
--- NOTE | 2018-09-08 14:59 | PN ---
S CIWA - CIWA Score Nausea/Vomitin-No Nausea/No Vomiting Muscle Tremors: 2 Anxiety: 2 Agitation: 2 Paroxysmal Sweats: 2 Orientation: 0-Oriented Tacttile Disturbances: 0-None Auditory Disturbances: 0-None Visual Disturbances: 0-None Headache: 0-None Present CIWA-Ar Total Score: 8 [facility] Progress Note (SOAP) Subjective: Patient denies any complaints at this time Objective: 09/08/18 14:58 Last Vital Signs Temp Pulse Resp BP Pulse Ox 96.1 F L 86 18 145/86 09/08/18 14:09 09/08/18 14:09 09/08/18 14:09 09/08/18 14:09 Elevated b/p noted 145/86 (has htn, not on med) Laboratory Tests 09/05/18 09/06/18 09/06/18 18:17 07:00 07:00 WBC 5.6 RBC 4.86 Hgb 13.7 Hct 43.2 MCV 89.0 MCH 28.2 MCHC 31.7 L RDW 14.9 Plt Count 189 MPV 8.0 Sodium 141 Potassium 3.8 Chloride 108 H Carbon Dioxide 27 Anion Gap 6 L BUN 14 Creatinine 0.6 Est GFR (CKD-EPI)AfAm 121.46 Est GFR (CKD-EPI)NonAf 104.80 Random Glucose 92 Calcium 9.0 Total Bilirubin 1.5 H AST 15 ALT 24 Alkaline Phosphatase 91 Total Protein 6.3 L Albumin 3.3 L POC Urine HCG, Qual Negative RPR Titer 09/06/18 07:00 WBC RBC Hgb Hct MCV MCH MCHC RDW Plt Count MPV Sodium Potassium Chloride Carbon Dioxide Anion Gap BUN Creatinine Est GFR (CKD-EPI)AfAm Est GFR (CKD-EPI)NonAf Random Glucose Calcium Total Bilirubin AST ALT Alkaline Phosphatase Total Protein Albumin POC Urine HCG, Qual RPR Titer Nonreactive Labs reviewed: total bilirubin 1.5 Assessment: 09/08/18 15:01 Withdrawal symptoms Noted with htn and elevated total bilirubin Plan: Continue detox Encouraged PO water hydration HTN: not on medication, start clonidine 0.1mg PO q8hr prn if b/p > 140/90 Follow up with PCP for management Elevated total bilirubin: most likely due to alcoholism, repeat total bilirubin
[2018-09-08] MEDS ORDERED: cloNIDine HCL 0.1 MG TABLET PO PRN (15:00)
[2018-09-08] MEDS: risperiDONE 1 MG TABLET (FP) PO SCH (22:12)
[2018-09-08] MEDS: MONTELUKAST NA 10 MG TABLET PO SCH (22:12)
[2018-09-08] MEDS: THIAMINE HCL 100 MG TABLET (FP) PO SCH (22:12)
[2018-09-08] MEDS: BENZTROPINE MESYLATE 1 MG TABLET (FP) PO SCH (22:14)
[2018-09-08] MEDS ORDERED: chlordiazePOXIDE HCL 10 MG CAPSULE PO SCH (23:00)
[2018-09-09 09:02] VITALS: BP 131/91; PULSE 88; TEMP 98.1
[2018-09-09] MEDS: PATIENT'S OWN MEDICATION (NON-FORMULARY) (Bupropion Hcl [Bupropion Hcl Sr] 150 MG) PO SCH (09:14)
[2018-09-09] MEDS: PRENATAL VITAMINS W/ FOLIC ACID TABLET (FP) PO SCH (09:14)
--- NOTE | 2018-09-09 16:36 | DS ---
[facility] Detox Discharge Summary Admission Date: 09/05/18 Discharge Date: 09/09/18 - History Present History: Alcohol Dependence, Cocaine Dependence Additional Comments: PATIENT GOING TO [facility] ([place], [place]) FOR AFTERCARE. PATIENT WAS DISCHARGED FROM DETOX UNIT IN STABLE MEDICAL CONDITION. Pertinent Past History: Osteoarthritis, Insomnia, Nicotine Dependence, Asthma, HTN, Chronic Back Pain, Schizoaffective Disorder, P.T.S.D., Depression. - Physical Exam Results Vital Signs: Vital Signs Temperature 98.1 F 09/09/18 09:01 Pulse Rate 88 09/09/18 09:01 Respiratory Rate 18 09/09/18 09:01 Blood Pressure 131/91 09/09/18 09:01 O2 Sat by Pulse Oximetry (%) Pertinent Admission Physical Exam Findings: WITHDRAWAL SYMPTOMS. Laboratory Tests 09/05/18 09/06/18 09/06/18 18:17 07:00 07:00 WBC 5.6 RBC 4.86 Hgb 13.7 Hct 43.2 MCV 89.0 MCH 28.2 MCHC 31.7 L RDW 14.9 Plt Count 189 MPV 8.0 Sodium 141 Potassium 3.8 Chloride 108 H Carbon Dioxide 27 Anion Gap 6 L BUN 14 Creatinine 0.6 Est GFR (CKD-EPI)AfAm 121.46 Est GFR (CKD-EPI)NonAf 104.80 Random Glucose 92 Calcium 9.0 Total Bilirubin 1.5 H AST 15 ALT 24 Alkaline Phosphatase 91 Total Protein 6.3 L Albumin 3.3 L POC Urine HCG, Qual Negative RPR Titer 09/06/18 07:00 WBC RBC Hgb Hct MCV MCH MCHC RDW Plt Count MPV Sodium Potassium Chloride Carbon Dioxide Anion Gap BUN Creatinine Est GFR (CKD-EPI)AfAm Est GFR (CKD-EPI)NonAf Random Glucose Calcium Total Bilirubin AST ALT Alkaline Phosphatase Total Protein Albumin POC Urine HCG, Qual RPR Titer Nonreactive LABS NOTED. - Treatment Hospital Course: Detox Protocol Followed, Detoxed Safely, Responded well, Discharged Condition Good Patient has Accepted a Rehab Referral to: PT. GOING TO [facility] ([place], [place]). - Medication Discharge Medications: Ambulatory Orders Albuterol Sulfate Inhaler - [Ventolin HFA Inhaler -] 2 inh PO Q4H PRN #1 inhaler 10/15/17 Benztropine Mesylate 0.5 mg PO HS 09/05/18 Bupropion HCl [Bupropion HCl Sr] 150 mg PO HS 09/05/18 Risperidone 1 mg PO HS 09/05/18 - Diagnosis (1) Alcohol dependence with uncomplicated withdrawal Status: Acute (2) Cocaine dependence Status: Acute Qualifiers: Substance use status: uncomplicated Qualified Code(s): F14.20 - Cocaine dependence, uncomplicated (3) Insomnia Status: Acute Qualifiers: Insomnia type: unspecified Qualified Code(s): G47.00 - Insomnia, unspecified (4) Asthma Status: Chronic Qualifiers: Asthma severity: moderate Asthma persistence: persistent Asthma complication type: uncomplicated Qualified Code(s): J45.40 - Moderate persistent asthma, uncomplicated (5) Nicotine dependence Status: Chronic Qualifiers: Nicotine product type: cigarettes Substance use status: in withdrawal Qualified Code(s): F17.213 - Nicotine dependence, cigarettes, with withdrawal (6) Osteoarthritis Status: Chronic Qualifiers: Osteoarthritis location: knee Osteoarthritis type: unspecified Laterality : bilateral Qualified Code(s): M17.0 - Bilateral primary osteoarthritis of knee (7) Substance induced mood disorder Status: Acute (8) Substance-induced sleep disorder Status: Acute (9) Schizoaffective disorder Status: Chronic Qualifiers: Schizoaffective disorder type: unspecified Qualified Code(s): F25.9 - Schizoaffective disorder, unspecified - AMA Did Patient Leave Against Medical Advice: No
== END 2018-09-09 06:25 | disposition home or self-care (01) | DRG 774 ==
LOC: YASAS 13:12 → Y6N 20:05
PROVIDERS: ADMIT Surgery; ATTEND Surgery
PROC: HZ2ZZZZ Detoxification Services for Substance Abuse Treatment (ICD-10-PCS; principal; 2018-09-05)
DX: F10.230 Alcohol dependence with withdrawal, uncomplicated (principal); F14.20 Cocaine dependence, uncomplicated; F17.213 Nicotine dependence, cigarettes, with withdrawal; F19.24 Other psychoactive substance dependence with psychoactive substance-induced mood disorder; F19.282 Other psychoactive substance dependence with psychoactive substance-induced sleep disorder; F25.9 Schizoaffective disorder, unspecified; I10 Essential (primary) hypertension; G47.00 Insomnia, unspecified; J45.40 Moderate persistent asthma, uncomplicated; M17.0 Bilateral primary osteoarthritis of knee; E80.7 Disorder of bilirubin metabolism, unspecified; M54.9 Dorsalgia, unspecified; G89.29 Other chronic pain; R26.2 Difficulty in walking, not elsewhere classified; Z99.89 Dependence on other enabling machines and devices; Z91.5 Personal history of self-harm
CPT/HCPCS: 36415; 80053; 81025; 85027; 86593; J2794